=== PATIENT | male | born 1990 | race African-American/Black ===

== ENCOUNTER 2024-03-11 22:58 | Emergency (ER) | payer SELFPAY ==
[2024-03-11 23:01] VITALS: BP 132/76
[2024-03-11 23:22] VITALS: BMI 28.4
[2024-03-11 23:25] VITALS: BP 126/91
--- NOTE | 2024-03-11 23:49 | ED.GENMED ---
History of Present Illness
General
Chief Complaint: Breathing Problem
Source: patient
Exam Limitations: none
Time Seen by Provider: 03/11/24 23:22
History of Present Illness
History of Present Illness:
This is a 33 year old male that is brought in by EMS with wheezing. Patient was found on the side of the road by Police. States that he is walking from [place] to [place]. States that he lost his inhaler. States that he was SOB. Denies any
fever, chills, chest pain, abd pain, nausea, vomiting, diarrhea, headache, dizziness, urinary burning.
Past History
Past History
ED Past Medical History: Asthma; Negative HTN, Hypercholesterolemia or NIDDM
ED Past Surgical History: None
Social History
Tobacco: Non-smoker
Alcohol: None
Personal: Single
Living: homeless
Review of Systems
Review of Systems
All Other Systems: ROS reviewed and negative except as documented in HPI and ROS
Constitutional: Reports no symptoms; Denies fever or chills
EENT: Reports no symptoms
Respiratory: Reports trouble breathing; Denies cough
Cardiac: Reports no symptoms; Denies chest pain
ABD/GI: Reports no symptoms; Denies abdominal pain, nausea, vomiting or diarrhea
: Reports no symptoms; Denies dysuria, frequency or urgency
Musculoskeletal: Reports no symptoms
Skin: Reports no symptoms
Neurological: Reports no symptoms; Denies dizzy or headache
Psychiatric: Reports no symptoms
Phy Exam
General Physical Exam
General Presentation: no apparent distress
General age: appears stated age
General Skin: warm and dry
General Habitus: poor hygiene
General Mental: alert
General Hydration: appears well hydrated
ENT Exam
ENT Exam: TM's normal, pharynx normal and neck supple
Eye Exam
Eye Exam: EOMI
Cardiovascular Exam
Cardiovascular Exam: regular rate/rhythm, no edema, no murmur and normal peripheral pulses
Pulmonary Exam
Pulmonary Exam: no respiratory distress, no rales, chest non tender, no crackles, no rhonchi, no cough and other (Faint wheeze at base on left)
Gastrointestinal Exam
Gastrointestinal Exam: normal bowel sounds, non tender, soft, no organomegaly, no pulsatile mass and non distended
Musculoskeletal Exam
Musculoskeletal Exam: full ROM and no edema
Skin Exam
Skin Exam: normal color, warm/dry, no rash and no petechia
Course
Orders/Labs/Results
Orders:
Orders
03/11/24 23:48
Albuterol [ProAIR HFA INHALER] 2 puff INH R NOW STA
Prednisone [Deltasone] 50 mg PO NOW STA
Vital Signs
Initial and Last Documented VS:
Initial Vital Signs
Temp Pulse Resp BP Pulse Ox
97.8 F 84 22 132/76 100
03/11/24 23:01 03/11/24 23:01 03/11/24 23:01 03/11/24 23:01 03/11/24 23:01
Last Documented Vital Signs
Temp Pulse Resp BP Pulse Ox
97.8 F 95 18 132/76 97
03/11/24 23:01 03/11/24 23:26 03/11/24 23:26 03/11/24 23:01 03/11/24 23:26
MDM/Problems Addressed
Differential Diagnosis Includes:
Asthma
MDM/Problems Addressed:
This is a 33 year old male that comes in by ambulance with c/o wheezing. States that he lost his albuterol inhaler. Patient was given a neb treatment on the way in and is better.
There is a faint wheeze at the left base. Will give patient Prednisone 50mg now and an Albuterol inhaler. Patient to return with any concern.
Chronic conditions affecting care: Asthma
Acute Exacerbation and/or Progression of Chronic Illness: Asthma
*Pulse Oximetry
Patient hypoxic: no
*EKG
Interpreted by ED Provider?: NA
Rate: EKG- N/A
*Pharm Spec Interpretation
Rate: Pharm Spec- N/A
*Critical Care Note
Total Time (30-74mins, 75-104mins- exclusive of procedures): Not Applicable
ED Attending Note
-
Portions of this chart may have been created with voice recognition software.� Occasional wrong word or��sound alike� substitutions may have occurred due to the inherent limitations of voice recognition software.
Discharge Plan
Departure
Patient Disposition: Home (Routine Discharge)
Date of Disposition: 03/11/24
Time of Disposition: 23:55
Patient with high blood pressure during this ER visit?: Yes
Condition: Good
Covid-19: Not Applicable
Discharge Problem:
Asthma attack
Instructions: Asthma, Adult (DC), BLOOD PRESSURE
Activity Restrictions/Additional Instructions:
As discussed, you have been given a dose of Prednisone to decreased inflammation. You also had 2 puffs of an inhaler. Please use for any further wheezing every 4 hours as needed. IF YOU HAVE ANY OTHER CONCERNS PLEASE RETURN TO THE EMERGENCY ROOM.
Interventions
Interventions:
*Risk Screen - Suicide Last Done: 03/11/24 23:01
*General Assessment Last Done: 03/11/24 23:22
*Neglect/Abuse Screening Last Done: 03/11/24 23:01
ED- Fall Risk Assessment Last Done: 03/11/24 23:22
*ED COVID-19 Vaccine History Last Done: 03/11/24 23:22
ED- Cardiac Assessment Last Done: 03/11/24 23:26
ED- Pulmonary Assessment Last Done: 03/11/24 23:26
Discharge Date and Time
Print Language: CITIZ[place]
[2024-03-12] VITALS: BP 125/78
[2024-03-12] MEDS: DELTASONE 50 MG PO (00:03)
[2024-03-12] MEDS: ProAIR HFA INHALER 2 PUFF INH (00:15)
== END 2024-03-12 00:20 | disposition home or self-care (01) ==
LOC: EMR 22:58
PROVIDERS: EMERGENCY PHYSICIAN Student in an Organized Health Care Education/Training Program
DX: J45.909 Unspecified asthma, uncomplicated (principal)
CPT/HCPCS: 99284; 94640